=== PATIENT | female | born 1990 | race Native Hawaiian/Other Pacific Islander ===

== ENCOUNTER → 2016-06-01 | Outpatient (CLI) | payer OTHER ==
[~2016-06-01] MED LIST: PRENTAB9 PO
--- NOTE | 2016-06-01 16:51 | REP ---
Obstetric sonography: History: Size less than dates, growth, amniotic fluid. Placental tip location. Findings: Scanning through the gravid uterus demonstrates a viable single intrauterine gestation in cephalic lie. heart rate is recorded at 124 beats per minute. An anterior placenta is seen. The inferior tip of the placenta measured 1.7-1.9 cm from the internal cervical os on transvaginal exam. Doppler flow shows blood vessels adjacent to the cervix but none crossing the internal cervical os. The maternal cervical length is 2.9 cm with Valsalva measured trans vaginally. No funneling is seen. Umbilical cord is seen draping across the shoulders. SD ratio in the umbilical cord artery by Doppler is normal at 2.48. ANDRES is normal is low normal at 7.6 cm (7.6-24.6 cm). BPD 8.5 cm = 34 weeks 1 day Head circumference 31.5 cm = 35 weeks 2 days Abdominal circumference 31.9 cm = 35 weeks 5 days Femur length 7.3 cm = 37 weeks 2 days HC/AC ratio normal 0.99, cephalic index normal 0.75, estimated weight 2803 grams 6 pounds 2 ounces 41st percentile for 36 weeks 4 days. Impression: Viable single intrauterine gestation at 35 weeks 4 days by today's composite criteria. Expected gestational age estimate based on prior sonography is 36 weeks 4 days. DONN by prior sonography 06/25/2016. Findings consistent with marginal placenta previa. Placental tip measures 1.7 cm from the internal cervical os on transvaginal imaging. Signed by Sarath Cruz MD 06/02/2016 10:07 A
== END ==
LOC: M SMT 14:36
PROVIDERS: ATTEND Obstetrics & Gynecology
DX: Z34.83 Encounter for supervision of other normal pregnancy, third trimester (principal)

== ENCOUNTER 2016-06-14 01:12 | Inpatient (IN) | payer OTHER ==
[~2016-06-14] VITALS: Ht 157.5 cm; Wt 69.0 kg
[2016-06-14] VITALS (41 sets, daily range): BP systolic 107–141; BP diastolic 54–95
[2016-06-14] MEDS ORDERED: LR 1,000 ML IV SCH ×2 (01:43→14:11)
[2016-06-14] MEDS ORDERED: LACTATED RINGER'S 1000 ML IV STA (01:43)
[2016-06-14] MEDS ORDERED: PENICILLIN G POTASSIUM IV 5 MU in D5W MINI-BAG PLUS 100 ML IV STA (01:43)
[2016-06-14 02:12] LABS: MEAN CORPUSCULAR HEMOGLOBIN 27.1 pg (27.0-33.0); MEAN CORPUSCULAR VOLUME 87.4 fl (80.0-96.0); RED CELL DISTRIBUTION WIDTH 14.8 % (11.5-14.5); WHITE BLOOD COUNT 12.8 K/mm3 (4.0-10.0)
[2016-06-14] MEDS ORDERED: OXYTOCIN DRIP 30 UNITS in APPROPRIATE DILUENT 1 EA IV SCH ×2 (02:15→14:11)
[2016-06-14] MEDS: PENICILLIN G POTASSIUM IV 2.5 MU in D5W 100 ML IV SCH ×2 (06:33→10:27)
[2016-06-14] MEDS: PRENATAL VITAMIN TAB PO SCH (09:00)
[2016-06-14] MEDS ORDERED: FENTANYL 2MCG/ML ROPIVACAINE 0.2% NACL 250 ML CADD As Ordered ONE (11:07)
[2016-06-14] MEDS ORDERED: EPIDURAL COMMENT XX SCH (12:45)
[2016-06-14] MEDS ORDERED: EPIDURAL/PCA KEYS XX PRN (12:45)
[2016-06-14] MEDS ORDERED: ONDANSETRON 4MG/2ML VIAL (J2405) IV PRN ×2 (12:45→14:15)
[2016-06-14] MEDS ORDERED: diphenhydrAMINE INJ 50MG/ML VIAL (J1200) IV PRN (12:45)
[2016-06-14] MEDS ORDERED: ePHEDrine SULFATE 25 MG/5 ML(5MG/ML) SYRINGE IV PRN (12:45)
[2016-06-14] MEDS ORDERED: NALOXONE INJ 0.4 MG/1 ML VIAL (J2310) IV PRN (12:45)
[2016-06-14] MEDS ORDERED: FENTANYL/ROPIVACAINE/NACL CADD 250 ML EPIDURAL SCH (12:45)
[2016-06-14] MEDS ORDERED: REFRIGERATOR IV KEYS XX PRN (12:45)
[2016-06-14] MEDS ORDERED: ACETAMINOPHEN 500 MG TAB PO PRN (14:15)
[2016-06-14] MEDS ORDERED: METHYLERGONOVINE MALEATE 0.2 MG TAB PO PRN (14:15)
[2016-06-14] MEDS ORDERED: DOCUSATE SODIUM 100 MG CAP PO PRN (14:15)
[2016-06-14] MEDS ORDERED: IBUPROFEN 800 MG TAB PO PRN (14:15)
[2016-06-14] MEDS ORDERED: DIBUCAINE 1% OINTMENT 30GM TOP PRN (14:15)
[2016-06-14] MEDS ORDERED: PROMETHAZINE 25 MG TAB PO PRN (14:15)
[2016-06-14] MEDS ORDERED: RHOGAM 300 MCG (1500 IU) INJ (J2790) IM SCH (14:15)
[2016-06-15 05:49] VITALS: BP 118/69
[2016-06-15] MEDS: PRENATAL VITAMIN TAB PO SCH (09:00)
[2016-06-15 18:00] VITALS: BP 133/76
[2016-06-16 06:11] VITALS: BP 106/53
[2016-06-16] MEDS: PRENATAL VITAMIN TAB PO SCH (07:55)
[2016-06-16] MEDS ORDERED: ACET50TA PO (08:43)
[2016-06-16] MEDS ORDERED: IBUP-1114 PO (08:43)
== END 2016-06-16 12:00 | disposition home or self-care (01) | DRG 560 ==
LOC: M LDO 01:12 → M LDI 01:39 → M OBS 18:18
PROVIDERS: ADMIT Obstetrics & Gynecology; ATTEND Obstetrics & Gynecology
PROC: 10E0XZZ Delivery of Products of Conception, External Approach (ICD-10-PCS; principal; 2016-06-14)
DX: O44.43 Low lying placenta NOS or without hemorrhage, third trimester (principal); Z37.0 Single live birth; Z3A.39 39 weeks gestation of pregnancy; O99.820 Streptococcus B carrier state complicating pregnancy

== ENCOUNTER → 2018-08-09 | Outpatient (REF) | payer OTHER ==
[~2018-08-09] MED LIST changes: +IBUP-1114 PO; +MAPA500T2 PO
== END ==
LOC: M LAB REF 11:44
PROVIDERS: ATTEND Advanced Practice Midwife
DX: Z12.4 Encounter for screening for malignant neoplasm of cervix (principal)

== ENCOUNTER → 2018-09-05 | Outpatient (CLI) | payer OTHER ==
[2018-09-05 13:41] LABS: BASO % 0.3 % (0.0-1.0); EOS # 0.1 10^3/uL (0.0-0.50); EOS % 1.2 % (0.0-3.0); HEMOGLOBIN 12.5 g/dl (12.0-15.5); LYMPH # 1.5 10^3/uL (1.5-6.5); LYMPH % 16.3 % (24.0-44.0); MEAN CORPUSCULAR HEMOGLOBIN 29.1 pg (27.0-33.0); MEAN CORPUSCULAR HGB CONC 32.9 g/dl (32.0-36.5); MEAN CORPUSCULAR VOLUME 88.6 fl (80.0-96.0); MONO # 0.7 10^3/uL (0.0-0.8); MONO % 7.3 % (0.0-5.0); NEUTROPHILS # 6.7 10^3/uL (1.8-7.7); NEUTROPHILS % 74.3 % (36.0-66.0); PLATELET COUNT, AUTOMATED 297 10^3/uL (150-450); RED BLOOD COUNT 4.29 10^6/uL (4.00-5.40); WHITE BLOOD COUNT 9.1 10^3/uL (4.0-10.0)
[2018-09-05 14:31] LABS: HEPATITIS C VIRUS ABY INDEX 0.1 INDEX (<0.8); HIV 1&2 SCREEN CENTAUR NEGATIVE (NEGATIVE); RUBELLA IgG QUALITATIVE IMMUNE (IMMUNE)
[2018-09-05 14:41] LABS: CHLAMYDIA DNA AMPLIFICATION NEGATIVE (NEGATIVE); GC DNA AMPLIFICATION NEGATIVE (NEGATIVE)
== END ==
LOC: M SMT 09:19
PROVIDERS: ATTEND Advanced Practice Midwife
DX: Z34.81 Encounter for supervision of other normal pregnancy, first trimester (principal); Z3A.11 11 weeks gestation of pregnancy

== ENCOUNTER → 2018-10-18 | Outpatient (CLI) | payer OTHER ==
--- NOTE | 2018-10-18 13:49 | REP ---
Clinical: Anatomical evaluation. Comparison: None . Findings: Examination demonstrates a single live intrauterine in variable presentation. motion is identified by technologist. Placenta is noted anterior/right lateral and grade grade zero without evidence for placenta previa or abruption. Amniotic fluid volume is normal. Cervix measures 5.8 cm in length and appears closed. No evidence for nuchal cord. Gestational age by LMP 21 weeks 4 days with DONN 02/24/2019 . Gestational age by current measurements 21 weeks 4 days with DONN 02/24/2019 . FHR equals 156 beats per minute. BPD 5.2 cm 21 weeks 5 days HC 19.7 cm 21 weeks 6 days AC 16.8 cm 21 weeks 5 days FL 3.7 cm 21 weeks 5 days HL 3.5 cm 22 weeks 0 days HC/AC ratio 1.17 Estimated weight 151 grams ( 52nd percentile). Anatomical assessment demonstrates normal structures including cranium, choroid plexus, cavum, cerebellum/posterior fossa, facial features, lungs, four-chamber heart/ventricular outflow tracts, diaphragm, stomach, cord insertion/three-vessel cord, kidneys/bladder, spine, and extremities. Impression: Single live intrauterine in variable presentation demonstrating appropriate interval growth and normal anatomical assessment. Electronically Signed by Elder Arredondo MD 10/18/2018 01:41 P
== END ==
LOC: M RAD 09:26
PROVIDERS: ATTEND Advanced Practice Midwife
DX: Z34.82 Encounter for supervision of other normal pregnancy, second trimester (principal); Z3A.21 21 weeks gestation of pregnancy

== ENCOUNTER → 2018-11-30 | Outpatient (CLI) | payer OTHER ==
[2018-11-30 13:29] LABS: HEMATOCRIT 35.3 % (36.0-47.0); HEMOGLOBIN 11.6 g/dl (12.0-15.5); MEAN CORPUSCULAR HEMOGLOBIN 29.1 pg (27.0-33.0); MEAN CORPUSCULAR HGB CONC 32.9 g/dl (32.0-36.5); MEAN CORPUSCULAR VOLUME 88.5 fl (80.0-96.0); PLATELET COUNT, AUTOMATED 272 10^3/uL (150-450); RED BLOOD COUNT 3.99 10^6/uL (4.00-5.40); WHITE BLOOD COUNT 12.4 10^3/uL (4.0-10.0)
== END ==
LOC: M SMT 09:13
PROVIDERS: ATTEND Advanced Practice Midwife
DX: Z34.82 Encounter for supervision of other normal pregnancy, second trimester (principal)

== ENCOUNTER → 2019-01-30 | Outpatient (REF) | payer OTHER | LOC: M LAB REF 18:15 | PROVIDERS: ATTEND Obstetrics & Gynecology | DX: Z34.83 Encounter for supervision of other normal pregnancy, third trimester (principal) ==

== ENCOUNTER 2019-02-20 02:23 | Inpatient (IN) | payer OTHER ==
[~2019-02-20] VITALS: Ht 157.5 cm; Wt 75.9 kg
[2019-02-20] VITALS (24 sets, daily range): BP systolic 106–162; BP diastolic 57–93
[2019-02-20] MEDS ORDERED: LR 1,000 ML IV SCH (03:14)
[2019-02-20] MEDS ORDERED: LACTATED RINGER'S 1000 ML IV STA (03:14)
[2019-02-20 03:24] LABS: HEMATOCRIT 34.8 % (36.0-47.0); HEMOGLOBIN 11.4 g/dl (12.0-15.5); MEAN CORPUSCULAR HEMOGLOBIN 28.4 pg (27.0-33.0); MEAN CORPUSCULAR HGB CONC 32.8 g/dl (32.0-36.5); MEAN CORPUSCULAR VOLUME 86.6 fl (80.0-96.0); PLATELET COUNT, AUTOMATED 279 10^3/uL (150-450); RED BLOOD COUNT 4.02 10^6/uL (4.00-5.40); WHITE BLOOD COUNT 11.4 10^3/uL (4.0-10.0)
[2019-02-20] MEDS ORDERED: OXYTOCIN DRIP 30 UNITS in IV 1 EA IV SCH ×2 (03:30→07:57)
[2019-02-20] MEDS ORDERED: FENTANYL 2MCG/ML ROPIVACAINE 0.2% IN 0.9% NACL 100ML IVBAG As Ordered ONE (04:21)
[2019-02-20] MEDS ORDERED: diphenhydrAMINE INJ 50MG/ML VIAL (J1200) IV PRN (05:45)
[2019-02-20] MEDS ORDERED: EPIDURAL/PCA KEYS XX PRN (05:45)
[2019-02-20] MEDS ORDERED: ePHEDrine SULFATE 25 MG/5 ML(5MG/ML) SYRINGE IV PRN (05:45)
[2019-02-20] MEDS ORDERED: LACTATED RINGER'S 1000 ML IV PRN (05:45)
[2019-02-20] MEDS ORDERED: REFRIGERATOR IV KEYS XX PRN (05:45)
[2019-02-20] MEDS ORDERED: FENTANYL/ROPIVACAINE/NACL BAG 100 ML EPIDURAL SCH (05:45)
[2019-02-20] MEDS ORDERED: NALOXONE INJ 0.4 MG/1 ML VIAL (J2310) IV PRN (05:45)
[2019-02-20] MEDS ORDERED: ONDANSETRON 4MG/2ML VIAL (J2405) IV PRN ×2 (05:45→08:00)
[2019-02-20] MEDS ORDERED: EPIDURAL COMMENT XX SCH (05:45)
[2019-02-20] MEDS ORDERED: ACETAMINOPHEN 500 MG TAB PO PRN (08:00)
[2019-02-20] MEDS ORDERED: IBUPROFEN 800 MG TAB PO PRN (08:00)
[2019-02-20] MEDS ORDERED: MEASLES,MUMPS,RUBELLA VACCINE INJ (MMR-II) (90707) SC SCH (08:00)
[2019-02-20] MEDS ORDERED: DOCUSATE SODIUM 100 MG CAP PO PRN (08:00)
[2019-02-20] MEDS ORDERED: RHOGAM 300 MCG (1500 IU) INJ (J2790) IM SCH (08:00)
[2019-02-20] MEDS ORDERED: DIBUCAINE 1% OINTMENT 30GM TOP PRN (08:00)
[2019-02-20] MEDS ORDERED: PROMETHAZINE 25 MG TAB PO PRN (08:00)
[2019-02-20] MEDS ORDERED: ACETAMINOPHEN TAB 650MG DOSE (2X325MG) PO PRN (08:00)
[2019-02-20] MEDS ORDERED: IBUPROFEN 600 MG TAB PO PRN (08:00)
[2019-02-20] MEDS: PRENATAL VITAMINS CHEWABLE TABLET PO SCH (09:00)
[2019-02-21] MEDS ORDERED: CEPACOL LOZENGE PO PRN (03:30)
[2019-02-21] MEDS ORDERED: ALBUTEROL 90 MCG/ACT 8GM HFA INHALER INH PRN (03:30)
[2019-02-21 06:43] VITALS: BP 113/55
[2019-02-21] MEDS ORDERED: VENTAER INH (07:46)
[2019-02-21] MEDS: PRENATAL VITAMINS CHEWABLE TABLET PO SCH (09:00)
[2019-02-21] MEDS ORDERED: ADACEL/BOOSTRIX VACCINE (DIPHTH/PERTUSS/ACELL/TETANUS)0.5ML SYR (90715) IM ONE (09:00)
[2019-02-21] MEDS ORDERED: INFLUENZA QUADRIVALENT PF VACCINE 0.5ML SYRINGE (90686) IM ONE (09:00)
[2019-02-21 18:00] VITALS: BP 122/58
[2019-02-22 05:55] VITALS: BP 125/71
[2019-02-22] MEDS: PRENATAL VITAMINS CHEWABLE TABLET PO SCH (08:01)
== END 2019-02-22 10:35 | disposition home or self-care (01) | DRG 560 ==
LOC: M LDO 02:23 → M LDI 02:52 → M OBS 09:33
PROVIDERS: ADMIT Obstetrics & Gynecology; ATTEND Obstetrics & Gynecology
PROC: 10E0XZZ Delivery of Products of Conception, External Approach (ICD-10-PCS; principal; 2019-02-20)
PROC: 0KQM0ZZ Repair Perineum Muscle, Open Approach (ICD-10-PCS; 2019-02-20)
DX: O69.81X0 Labor and delivery complicated by cord around neck, without compression, not applicable or unspecified (principal); O70.1 Second degree perineal laceration during delivery; Z3A.39 39 weeks gestation of pregnancy; Z37.0 Single live birth

== ENCOUNTER 2021-02-13 11:20 | Emergency (ER) | payer OTHER ==
[~2021-02-13] VITALS: Ht 157.5 cm; Wt 63.6 kg
[~2021-02-13 11:20] MED LIST changes: +VENTAER INH
[2021-02-13 11:21] VITALS: BP 154/95
== END 2021-02-13 12:30 | disposition left against medical advice (07) ==
LOC: M ED 11:20
DX: Z53.21 Procedure and treatment not carried out due to patient leaving prior to being seen by health care provider (principal)